=== PATIENT | male | born 1945 | race Caucasian/White ===

== ENCOUNTER 2017-09-13 04:14 | Emergency (ER) | payer OTHER ==
[~2017-09-13] VITALS: Ht 172.7 cm; Wt 95.0 kg
[2017-09-13 04:20] VITALS: TEMP 36.5; Ht 172.7 cm; Wt 95.0 kg
[2017-09-13] MEDS ORDERED: KETOROLAC TROMETHAMINE 30 MG/ML VIAL IV STA (04:36)
[2017-09-13] MEDS ORDERED: DEXAMETHASONE **PF** INJ 10 MG/ML VIAL IV ONE (04:45)
[2017-09-13 05:12] LABS: BASO % 0.2 %; BASO ABS # 0.02 K/uL (0-0.2); EOS % 1.4 %; EOS ABS # 0.12 K/uL (0-0.5); HEMATOCRIT 49.1 % (42-52); IG# 0.02 K/uL (0.00-0.02); LYMPH ABS # 2.53 K/uL (1.2-3.4); MEAN CELL VOLUME 87.5 fL (80-100); MEAN CORPUSCULAR HEMOGLOBIN 30.3 pg (25-34); MEAN CORPUSCULAR HGB CONC 34.6 g/dl (32-36); MEAN PLATELET VOLUME 10.6 fL (7.4-10.4); MONO % 7.8 %; MONO ABS # 0.66 K/uL (0.11-0.59); NEUT % 60.4 %; NEUT ABS # 5.08 K/uL (1.4-6.5); PLATELET COUNT 206 K/uL (130-400); RED CELL DISTRIBUTION WIDTH SD 41.4 fL (36.4-46.3); WHITE BLOOD COUNT 8.43 K/uL (4.8-10.8)
[2017-09-13] MEDS ORDERED: MoRPHine SULFATE 4 MG/ML 1 ML CARP\\VIAL IV STA ×2 (05:18→05:47)
[2017-09-13] MEDS ORDERED: ONDANSETRON INJ 2 MG/ML 2 ML VIAL IV STA (05:47)
[2017-09-13] MEDS ORDERED: LORAZEPAM 2 MG/ML 1 ML VIAL IV STA (05:47)
[2017-09-13 05:48] LABS: CALCIUM 8.8 mg/dl (8.5-10.1); CREATININE 1.26 mg/dl (0.60-1.40)
[2017-09-13] MEDS ORDERED: OXYC1TAB3 PO (06:03)
--- NOTE | 2017-09-13 06:52 | DIAGNOSTIC IMAGING REPORT ---
PELVIS/BILATERAL HIP 2 VIEWS HISTORY: 72 years-old Male sever right hip/leg acute right hip and leg pain status post recent fall COMPARISON: None available TECHNIQUE: AP view the pelvis with 2 views of the bilateral hips FINDINGS: Probable phleboliths of the pelvis. The bones appear mildly demineralized. Bony pelvis appears intact. Degenerative changes are seen within the imaged lower lumbar spine. Sacrum appears unremarkable. There are moderate degenerative changes of the bilateral femoral acetabular joints without acute fracture or subluxation. IMPRESSION: Moderate degenerative changes of the bilateral hips without acute fracture or dislocation. The above report was generated using voice recognition software. It may contain grammatical, syntax or spelling errors. Electronically signed by: Germain Denney M.D. 09/13/2017 6:50 AM Dictated Date/Time: 09/13/2017 6:49 AM
--- NOTE | 2017-09-13 07:13 | EMERGENCY ROOM VISIT NOTE ---
ED Visit Note First contact with patient: 04:23 I have personally evaluated and examined this patient. I agree with assessment and plan of Bria Us PA-C. Right leg sciatica like pain getting to point of having weakness and difficulty walking s/p slip a week or two ago.
[2017-09-13] MEDS ORDERED: HYDROmorphone INJ 0.5 MG/0.5 ML SYR IV STA ×2 (07:44→09:48)
--- NOTE | 2017-09-13 08:28 | DIAGNOSTIC IMAGING REPORT ---
BONY ORBITS 3 VIEWS CLINICAL HISTORY: MRI clearance. FINDINGS: 3 views of the bony orbits are obtained. No prior studies are available for comparison at the time of dictation. There is no radiodense/metallic foreign body seen in the region of the bony orbits. The bony orbits are intact as imaged. The visualized paranasal sinuses and the mastoid air cells appear clear. The imaged calvarium appears intact. IMPRESSION: There is no radiodense/metallic foreign body seen in the region of the bony orbits. Electronically signed by: Nikolai Live M.D. 09/13/2017 8:27 AM Dictated Date/Time: 09/13/2017 8:26 AM
[2017-09-13] MEDS ORDERED: LORAZEPAM 2 MG/ML 1 ML VIAL ONE (09:07)
--- NOTE | 2017-09-13 11:56 | DIAGNOSTIC IMAGING REPORT ---
MRI OF THE LUMBAR SPINE WITHOUT IV CONTRAST CLINICAL HISTORY: Low back pain. Right lower extremity radiculopathy. COMPARISON STUDY: No priors. TECHNIQUE: MRI of the lumbar spine is performed utilizing various T1 and T2-weighted sequences in the axial and sagittal planes. IV contrast was not administered for this examination. FINDINGS: Lumbar spine: Marrow signal intensity is heterogeneous. There is fatty marrow replacement noted in the sacrum. Vertebral body height and alignment are maintained throughout the lumbar spine. Anterior osteophytes are seen throughout. The transverse and spinous processes appear intact. There is no evidence of spondylolysis. No destructive osseous lesion is seen. A small hemangioma is present in the body of L5. Intervertebral discs: Degenerative disc desiccation is seen throughout the lumbar spine. Mild to moderate loss of height is present at L4-L5. Spinal cord: The visualized spinal cord is normal in morphology and signal intensity. The conus medullaris terminates at the level of L1. The nerve roots of the cauda equina are normal in morphology. T12-L1: There is a small disc bulge and annular fissure. The central canal and neural foramina are patent. L1-L2: Unremarkable. L2-L3: Unremarkable. L3-L4: There is a small posterior disc bulge. The central canal is patent. This causes mild bilateral subarticular stenosis. This may abut the exiting right L3 and the transiting right L4 nerve roots. Facet arthropathy is of no consequence. The neural foramina are patent. L4-L5: There is a disc bulge eccentric to the left. There is no significant acquired compromise of the central canal. This causes left-sided subarticular stenosis and likely abuts the exiting left L4 and the transiting left L5 nerve roots. The neural foramina are patent. Mild facet arthropathy is of no consequence. L5-S1: Unremarkable. Sacrum: No sacral abnormality is seen. Soft tissues: There is fatty atrophy of the paraspinous musculature. The partially visualized retroperitoneal structures are grossly unremarkable but incompletely evaluated. The prostate gland appears enlarged. The bladder wall is thickened and trabeculated suggesting chronic outlet obstruction. IMPRESSION: 1. There is no disc herniation or significant acquired compromise of the central canal. 2. Spondylotic change as above. See discussion for detailed level by level analysis. 3. No destructive bony process is seen. 4. Degenerative disc disease as above. Electronically signed by: Nikolai Live M.D. 09/13/2017 12:02 PM Dictated Date/Time: 09/13/2017 10:59 AM
[2017-09-13 12:35] VITALS: BP 144/94; PULSE 76; O2SAT 97
--- NOTE | 2017-09-13 14:37 | EMERGENCY ROOM VISIT NOTE ---
ED Visit Note First contact with patient: 07:44 72-year-old male whose care was transferred to md from Bria Us PA-C at change of shift. The patient presented with complaint of lower back pain radiating down the right leg to the foot. At the time of transfer of care, and MRI of the lumbar spine was ordered and pending. Immediately after transfer of care, the nurse reported that the patient was requesting something additional for pain. He was administered Dilaudid 0.5 mg IVP. His prior labs were reviewed and were grossly normal except for an elevated random glucose. The patient denies any prior history of diabetes. Labs are as follows: Results Past 24 Hours Test 09/13/17 04:50 Range/Units White Blood Count 8.43 4.8-10.8 K/uL Red Blood Count 5.61 4.7-6.1 M/uL Hemoglobin 17.0 14.0-18.0 g/dL Hematocrit 49.1 42-52 % Mean Corpuscular Volume 87.5 80-100 fL Mean Corpuscular Hemoglobin 30.3 25-34 pg Mean Corpuscular Hemoglobin Concent 34.6 32-36 g/dl Platelet Count 206 130-400 K/uL Mean Platelet Volume 10.6 7.4-10.4 fL Neutrophils (%) (Auto) 60.4 % Lymphocytes (%) (Auto) 30.0 % Monocytes (%) (Auto) 7.8 % Eosinophils (%) (Auto) 1.4 % Basophils (%) (Auto) 0.2 % Neutrophils # (Auto) 5.08 1.4-6.5 K/uL Lymphocytes # (Auto) 2.53 1.2-3.4 K/uL Monocytes # (Auto) 0.66 0.11-0.59 K/uL Eosinophils # (Auto) 0.12 0-0.5 K/uL Basophils # (Auto) 0.02 0-0.2 K/uL RDW Standard Deviation 41.4 36.4-46.3 fL RDW Coefficient of Variation 13.0 11.5-14.5 % Immature Granulocyte % (Auto) 0.2 % Immature Granulocyte # (Auto) 0.02 0.00-0.02 K/uL Sodium Level 136 136-145 mmol/L Potassium Level 3.5-5.1 mmol/L Chloride Level 104 98-107 mmol/L Carbon Dioxide Level 25 21-32 mmol/L Anion Gap 7.0 3-11 mmol/L Blood Urea Nitrogen 22 7-18 mg/dl Creatinine 1.26 0.60-1.40 mg/dl Est Creatinine Clear Calc Drug Dose 61.0 ml/min Estimated GFR () 66.5 Estimated GFR (Non- 57.4 BUN/Creatinine Ratio 17.6 10-20 Random Glucose 171 70-99 mg/dl Calcium Level 8.8 8.5-10.1 mg/dl As part of the MRI questionnaire, 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 Orbit x-rays were ordered and were normal: BONY ORBITS 3 VIEWS CLINICAL HISTORY: MRI clearance. FINDINGS: 3 views of the bony orbits are obtained. No prior studies are available for comparison at the time of dictation. There is no radiodense/metallic foreign body seen in the region of the bony orbits. The bony orbits are intact as imaged. The visualized paranasal sinuses and the mastoid air cells appear clear. The imaged calvarium appears intact. IMPRESSION: There is no radiodense/metallic foreign body seen in the region of the bony orbits. Noncontrast MRI of the lumbar spine does not show any emergent compressive changes. Radiologist report is as follows: Noncontrast MRI of the lumbar spine does not show any obvious disc herniations or other acute compressive changes. Radiologist report is as follows: MRI OF THE LUMBAR SPINE WITHOUT IV CONTRAST CLINICAL HISTORY: Low back pain. Right lower extremity radiculopathy. COMPARISON STUDY: No priors. TECHNIQUE: MRI of the lumbar spine is performed utilizing various T1 and T2-weighted sequences in the axial and sagittal planes. IV contrast was not administered for this examination. FINDINGS: Lumbar spine: Marrow signal intensity is heterogeneous. There is fatty marrow replacement noted in the sacrum. Vertebral body height and alignment are maintained throughout the lumbar spine. Anterior osteophytes are seen throughout. The transverse and spinous processes appear intact. There is no evidence of spondylolysis. No destructive osseous lesion is seen. A small hemangioma is present in the body of L5. Intervertebral discs: Degenerative disc desiccation is seen throughout the lumbar spine. Mild to moderate loss of height is present at L4-L5. Spinal cord: The visualized spinal cord is normal in morphology and signal intensity. The conus medullaris terminates at the level of L1. The nerve roots of the cauda equina are normal in morphology. T12-L1: There is a small disc bulge and annular fissure. The central canal and neural foramina are patent. L1-L2: Unremarkable. L2-L3: Unremarkable. L3-L4: There is a small posterior disc bulge. The central canal is patent. This causes mild bilateral subarticular stenosis. This may abut the exiting right L3 and the transiting right L4 nerve roots. Facet arthropathy is of no consequence. The neural foramina are patent. L4-L5: There is a disc bulge eccentric to the left. There is no significant acquired compromise of the central canal. This causes left-sided subarticular stenosis and likely abuts the exiting left L4 and the transiting left L5 nerve roots. The neural foramina are patent. Mild facet arthropathy is of no consequence. L5-S1: Unremarkable. Sacrum: No sacral abnormality is seen. Soft tissues: There is fatty atrophy of the paraspinous musculature. The partially visualized retroperitoneal structures are grossly unremarkable but incompletely evaluated. The prostate gland appears enlarged. The bladder wall is thickened and trabeculated suggesting chronic outlet obstruction. IMPRESSION: 1. There is no disc herniation or significant acquired compromise of the central canal. 2. Spondylotic change as above. See discussion for detailed level by level analysis. 3. No destructive bony process is seen. 4. Degenerative disc disease as above. After returning from x-ray, the patient was administered an additional Dilaudid 0.5 mg IVP. MRI findings were reviewed with the patient and . The patient was able to ambulate without any significant discomfort. The patient was provided a prescription for OxyIR 5 mg, and instructed to follow-up with his PCP for further reevaluation and management. He was instructed to return to the emergency department for any pronounced right lower extremity weakness, bladder/bowel incontinence or saddle anesthesias. The patient was happy with plan of care, voice understanding of all discharge instructions, and rated his discomfort a 3 out of 10 at the conclusion of my exam. MEDICAL DECISION MAKING: Patient presents with symptoms consistent with an acute lumbar radiculitis. The patient has done some heavy labor around the house over the weekend was splitting wood. MRI findings today are normal, and not suggestive of cauda equina syndrome, disc herniation or other concerning findings. At this point, I do not feel that emergent spine surgery consultation is warranted. I am also hesitant to treat the patient with corticosteroids given his elevated glucose levels. He was also instructed to follow-up with his PCP for additional lab work to rule out type 2 diabetes mellitus. DIAGNOSIS: 1. Acute right lumbar radiculopathy 2. Elevated blood glucose
--- NOTE | 2017-09-13 21:32 | EMERGENCY ROOM VISIT NOTE ---
History First contact with patient: 04:23 Chief Complaint: HIP PAIN Stated Complaint: RIGHT HIP PAIN DOWN LEG TO KNEE History of Present Illness The patient is a 72 year old male who presents to the Emergency Room with complaints of severe right hip pain that radiates down his leg for the past several days after he was shoveling snow and slipped. He describes the pain as aching, ranging in severity 8/10 worse with movement and better with rest. He did not fall to the ground. Patient states he's having trouble walking secondary to pain. He went to the chiropractor with minimal improvement of symptoms. No history of sciatica in the past. Patient denies fever, chills, loss of bowel or bladder control, saddle anesthesia, IV drug abuse, abdominal pain, chest pain, dyspnea. No trauma to the area. No prior fracture. Review of Systems See HPI for pertinent positives & negatives. A total of 10 systems reviewed and were otherwise negative. Past Medical/Surgical History Appendectomy, cholecystectomy Social History Smoking Status: Former Smoker Drug Use: none Marital Status: Housing Status: lives with family Current/Historical Medications Scheduled PRN Oxycodone Immediate Rel Tab (Roxicodone Ir), 1-2 TAB PO Q4H PRN for Severe Pain Physical Exam Vital Signs Date Time Temp Pulse Resp B/P (MAP) Pulse Ox O2 Delivery O2 Flow Rate FiO2 09/13/17 12:35 76 144/94 97 09/13/17 10:37 72 16 112/81 92 Room Air 09/13/17 09:26 64 16 140/83 95 Room Air 09/13/17 08:00 60 16 145/81 97 Room Air 09/13/17 05:35 65 18 150/91 96 Room Air 09/13/17 04:20 36.5 63 18 176/90 95 Room Air Physical Exam VITALS: Vitals are noted on the nurse's note and reviewed by myself. Vital signs hypertensive GENERAL: Pleasant male who appears in pain, in no acute distress, nondiaphoretic , well-developed well-nourished. SKIN: Capillary reflex less than 2 seconds. HEENT: Normocephalic. PERRLA. EOMI. Nares patent. Mucous membranes moist. Neck is supple without nuchal rigidity. HEART: Regular rate and rhythm . LUNGS: Clear to auscultation bilaterally without wheezes, rales or rhonchi. No retractions or accessory muscle use. ABDOMEN: Positive bowel sounds x 4. Normal tympanic percussion. Soft, nontender, without masses or organomegaly. Best sign negative. No guarding or rebound tenderness. MUSCULOSKELETAL: No gross musculoskeletal defects. No pedal edema. No calf tenderness. No thoracic lumbar tenderness or thoracic tenderness on exam. Positive straight leg raise on the right. Pelvis stable. Full range of motion of both legs without pain. Patient has difficulty ambulating and is unable to walk on toes or heels secondary to pain. Patient can plantarflex and dorsiflex without difficulties. NEURO: Patient was alert and oriented to person place and time. Normal sensation to light and sharp touch. Deep tendon reflexes 2+ patella bilaterally no focal neurological deficits. Medical Decision & Procedures Laboratory Results 09/13/17 04:50 Red Blood Count 5.61, Mean Corpuscular Volume 87.5, Mean Corpuscular Hemoglobin 30.3, Mean Corpuscular Hemoglobin Concent 34.6, Mean Platelet Volume 10.6, Neutrophils (%) (Auto) 60.4, Lymphocytes (%) (Auto) 30.0, Monocytes (%) (Auto) 7.8, Eosinophils (%) (Auto) 1.4, Basophils (%) (Auto) 0.2, Neutrophils # (Auto) 5.08, Lymphocytes # (Auto) 2.53, Monocytes # (Auto) 0.66, Eosinophils # (Auto) 0.12, Basophils # (Auto) 0.02 09/13/17 04:50 Test 09/13/17 04:50 White Blood Count 8.43 K/uL (4.8-10.8) Red Blood Count 5.61 M/uL (4.7-6.1) Hemoglobin 17.0 g/dL (14.0-18.0) Hematocrit 49.1 % (42-52) Mean Corpuscular Volume 87.5 fL (80-100) Mean Corpuscular Hemoglobin 30.3 pg (25-34) Mean Corpuscular Hemoglobin Concent 34.6 g/dl (32-36) Platelet Count 206 K/uL (130-400) Mean Platelet Volume 10.6 fL (7.4-10.4) Neutrophils (%) (Auto) 60.4 % Lymphocytes (%) (Auto) 30.0 % Monocytes (%) (Auto) 7.8 % Eosinophils (%) (Auto) 1.4 % Basophils (%) (Auto) 0.2 % Neutrophils # (Auto) 5.08 K/uL (1.4-6.5) Lymphocytes # (Auto) 2.53 K/uL (1.2-3.4) Monocytes # (Auto) 0.66 K/uL (0.11-0.59) Eosinophils # (Auto) 0.12 K/uL (0-0.5) Basophils # (Auto) 0.02 K/uL (0-0.2) RDW Standard Deviation 41.4 fL (36.4-46.3) RDW Coefficient of Variation 13.0 % (11.5-14.5) Immature Granulocyte % (Auto) 0.2 % Immature Granulocyte # (Auto) 0.02 K/uL (0.00-0.02) Anion Gap 7.0 mmol/L (3-11) Est Creatinine Clear Calc Drug Dose 61.0 ml/min Estimated GFR () 66.5 Estimated GFR (Non- 57.4 BUN/Creatinine Ratio 17.6 (10-20) Calcium Level 8.8 mg/dl (8.5-10.1) Medications Administered Medications (Trade) Dose Ordered Sig/Celeste Route Start Time Stop Time Status Last Admin Dose Admin Dexamethasone Sodium Phosphate (Dexamethasone Inj Pf) 10 mg NOW ONCE IV 09/13/17 04:45 09/13/17 04:46 DC 09/13/17 04:55 10 MG Ketorolac Tromethamine (Toradol Inj) 30 mg NOW STAT IV 09/13/17 04:36 09/13/17 04:40 DC 09/13/17 04:55 30 MG Morphine Sulfate (MoRPHine SULFATE INJ) 4 mg NOW STAT IV 09/13/17 05:18 09/13/17 05:19 DC 09/13/17 05:35 4 MG Morphine Sulfate (MoRPHine SULFATE INJ) 4 mg NOW STAT IV 09/13/17 05:47 09/13/17 05:48 DC 09/13/17 06:19 4 MG Ondansetron HCl (Zofran Inj) 4 mg NOW STAT IV 09/13/17 05:47 09/13/17 05:48 DC 09/13/17 05:57 4 MG Hydromorphone HCl (Dilaudid Inj) 0.5 mg NOW STAT IV 09/13/17 07:44 09/13/17 07:45 DC 09/13/17 08:02 0.5 MG Lorazepam (Ativan Inj) 2 mg STK-MED ONCE .ROUTE 09/13/17 09:07 09/13/17 09:08 DC 09/13/17 09:21 0.5 MG Hydromorphone HCl (Dilaudid Inj) 0.5 mg NOW STAT IV 09/13/17 09:48 09/13/17 09:49 DC 09/13/17 10:01 0.5 MG ED Course Prior records/ancillary studies reviewed. Triage Nursing notes reviewed. Additional history obtained from family. The patient's history was concerning for back pain. Differential diagnosis: Etiologies such as musculoskeletal, disc herniation, fracture, aortic disease, metastatic disease, cord compression, discitis, infection, renal colic, gastrointestinal, acute exacerbation of chronic back pain, sciatica, cauda equina, as well as others were entertained. Physical findings: As above. ER treatment provided: Decadron, Toradol On reassessment the patient felt better. Diagnostics interpreted by me: The labs revealed hyperglycemia without DKA Imaging studies: Pelvis and hip x-ray negative for fracture per my interpretation MRI pending This appears to be consistent with lumbar radiculopathy. The patient was having difficulty lifting his leg and ambulate so further imaging was ordered. Case is signed out to Rubio Brown PA-C pending imaging and reevaluation in stable condition. Case reviewed with my attending. Medical Decision As above [place] Drug Monitoring Program Search Results: patient reviewed within database, no issues identified Medication Reconcilliation Current Medication List: was personally reviewed by me Blood Pressure Screening Patient's blood pressure: Elevated blood pressure Blood pressure disposition: Elevated BP felt to be situational Impression Primary Impression: Lumbar radiculopathy Additional Impression: Hyperglycemia Departure Information Dispostion Home / Self-Care Condition GOOD Prescriptions Oxycodone Immediate Rel Tab (ROXICODONE IR) 5 Mg Tab 1-2 TAB PO Q4H Y for Severe Pain, #15 TAB initial course Prov: Veronica Us .FRANK 09/13/17 Referrals Vibha Scott M.D. (PCP) Patient Instructions My [facility] Additional Instructions DO NOT drive, drink alcohol, operate machinery, or perform dangerous activities today. You were given medications in the ER that can affect your ability to safely function or operate a vehicle. Prednisone 50mg: Once daily until the prescription is finished. It is best to take this earlier in the day as some patients note occasional difficulty falling asleep when taken in the late evening. Oxycodone (OxyIR) 5mg: Take 1-2 pills every four hours for breakthrough pain. Avoid alcohol, operating machinery or dangerous equipment, working on ladders or roofs, DRIVING, or situations where being under the influence may be dangerous. It is recommended to use an pwyd-qyw-[id number] stool softener such as Colace, 100mg twice daily while taking this medication to avoid constipation. Ibuprofen(Motrin, Advil) may be used for fever or pain. Use 600mg every six hours as needed. Take with food. Avoid using more than 2400mg in a 24 hour period. Do not use 2400mg per day for more than three consecutive days without physician direction. Prolonged inappropriate use can lead to stomach upset or ulcers. This medication can be taken if you need to drive, work, or perform activities which may be dangerous when taking narcotic pain medication. (AND/OR) Acetaminophen(Tylenol) may be used for fever or pain. Use 1000mg every six hours as needed. Avoid using more than 3000mg in a 24 hour period. This medication can be taken if you need to drive, work, or perform activities which may be dangerous when taking narcotic pain medication. Rest and avoid heavy lifting until your symptoms resolve and then gradually return to full activity. A good rule of thumb is if it hurts your back to perform a certain activity, then it should be avoided until you are healthy again. A heating pad, warm compresses, or a hot shower may help with tight muscles and can be done several times a day as needed. Continue current medications. Return to the ER immediately for any numbness, tingling, severe pain, loss of control of your bowels or bladder, inability to walk, or as needed. Follow up with your primary care physician within 3-5 days for a recheck of your current condition. Problem Qualifiers
== END 2017-09-13 12:37 | disposition home or self-care (01) ==
LOC: C.EDB 04:16 → C.EDA 12:37
DX: M54.16 Radiculopathy, lumbar region (principal); R73.9 Hyperglycemia, unspecified; Z87.891 Personal history of nicotine dependence